=== PATIENT | female | born 1965 | race American Indian/Alaskan Native ===

== ENCOUNTER 2017-09-12 11:33 | Outpatient (CLI) | payer MEDICAID ==
--- NOTE | 2017-09-14 13:02 | PET Report ---
PET/CT:09/12/17 11:33:00 CLINICAL: Right lung cancer restaging. RADIOPHARMACEUTICAL: 14.905mCi F18-FDG. COMPARISON: 07/26/16 and 01/26/16 PET/CT TECHNIQUE- Following intravenous injection of F-18 FDG and an approximately 60 minute uptake period, CT and PET images from the mid skull to the upper thighs were acquired with the patient in the fasted state. No contrast was administered. The CT protocol used for this PET CT study is designed for attenuation correction and anatomic localization of PET abnormalities. This luster applicator CT is not desired to produce and cannot replace, basaw-ke-xgt-art diagnostic CT scans with specific imaging protocols for different body parts and indications. Plasma glucose at the time of this test: 96g/dl. The standardized uptake values (SUV) are normalized to patient body weight and indicate the highest activity concentration (SUV max) in a given disease site. FINDINGS: Brain--Physiologic FDG uptake in the visualized regions of the brain. Neck--Physiologic FDG uptake . Chest--Physiologic FDG uptake in mediastinal blood pool and myocardium. Lungs--Increased size and number of right lung masses and nodules. The largest is in the right upper lobe and measures 4.8 x 2.4 cm with SUV of 12.0. A right apical mass measures 1.9-1.7 cm with HCV 13.3. Several bilateral non-FDG pulmonary nodules. The largest are on the right the largest is in the right lower lobe measuring 1.2 x 1.1 cm. Pleura/pericardium--No abnormal uptake. Thoracic nodes--Numerous enlarged FDG avid right hilar and mediastinal lymph nodes. An FDG avid subcarinal lymph node with SUV 12.8. A right paratracheal lymph node with SUV 12.4. Hepatobiliary--No abnormal uptake. Liver background SUV mean, as a reference for comparing FDG studies, is 3.6 compared to 3.0 on the last exam. No liver mass. Spleen--No abnormal uptake. Pancreas--No abnormal uptake. Adrenal Glands--No abnormal uptake. Kidneys/Ureters/Bladder--No abnormal uptake. Abdominopelvic Nodes--No abnormal uptake. Bowel/Peritoneum/Mesentery--No abnormal uptake. Pelvic organs--No abnormal uptake. Bones/Soft Tissues--No abnormal uptake. No suspicious bone lesion. IMPRESSION-Progression of disease with increased size and number of FDG avid right lung nodules and new bilateral non-FDG avid pulmonary nodules. Increased size and number of FDG avid mediastinal vance metastases. No evidence of hepatic or skeletal metastasis.
== END 2017-09-12 11:34 | disposition home or self-care (01) ==
LOC: PET 11:33
PROVIDERS: ATTEND Internal Medicine Hematology & Oncology
DX: C34.81 Malignant neoplasm of overlapping sites of right bronchus and lung (principal); D64.9 Anemia, unspecified; I10 Essential (primary) hypertension; R59.9 Enlarged lymph nodes, unspecified; Z79.899 Other long term (current) drug therapy
CPT/HCPCS: 78815; 82962; A9552

== ENCOUNTER 2018-01-06 14:17 | Outpatient (CLI) | payer MEDICAID | END 2018-01-06 14:18 | disposition home or self-care (01) | LOC: LABHHL 14:17 | PROVIDERS: ATTEND Internal Medicine Hematology & Oncology | DX: C34.81 Malignant neoplasm of overlapping sites of right bronchus and lung (principal) | CPT/HCPCS: 36415; 81235; 88271; 88275; 88291 ==

== ENCOUNTER → 2018-05-22 | Outpatient (CLI) | payer MEDICAID ==
--- NOTE | 2018-05-23 11:04 | PET Report ---
PET/CT:05/22/18 09:09:00 CLINICAL: Right lung cancer restaging. RADIOPHARMACEUTICAL: 13.5mCi F18-FDG. COMPARISON: 09/12/17 PET/CT TECHNIQUE- Following intravenous injection of F-18 FDG and an approximately 60 minute uptake period, CT and PET images from the mid skull to the upper thighs were acquired with the patient in the fasted state. No contrast was administered. The CT protocol used for this PET CT study is designed for attenuation correction and anatomic localization of PET abnormalities. This fluid jet cutter operator CT is not desired to produce and cannot replace, njajf-as-gtw-art diagnostic CT scans with specific imaging protocols for different body parts and indications. Plasma glucose at the time of this test: 103g/dl. The standardized uptake values (SUV) are normalized to patient body weight and indicate the highest activity concentration (SUV max) in a given disease site. FINDINGS: Brain--Physiologic FDG uptake in the visualized regions of the brain. Neck--Physiologic FDG uptake in mucosal structures. No mass or lymphadenopathy. Chest--Physiologic FDG uptake in mediastinal blood pool and myocardium. Lungs--Decreased size and decreased FDG uptake in right upper lobe paramediastinal mass extending into the right hilum. The dominant mass has a slightly different shape and is difficult to compare measurements with the last exam. Dominant mass of the right upper lobe measures approximately 4.3 x 2.3 cm with SUV 7.2 compared to 4.8 x 2.4 cm with 10.7 on the last exam. A right medial apical extension of the mass is unchanged in size with SUV 9.7 compared to 13.3 on the last exam. A superior segment right lower lobe mass measures 1.5 x 1.4 cm with SUV 4.2 compared to 1.5 x 1.4 cm and SUV 5.5. Pleura/pericardium--New right upper lobe pleural-based nodules. The largest is at the right fifth rib and measures 1.4 x 0.7 cm with SUV 6.5. 2 adjacent smaller nodules demonstrate no FDG uptake. Thoracic nodes--FDG avid mediastinal lymph nodes are unchanged in size. However, all lymph nodes demonstrate decreased FDG uptake area to a dominant subcarinal lymph node with SUV 9.0 compared to 14.2 on the last exam. Hepatobiliary--No abnormal uptake. Liver background SUV mean, as a reference for comparing FDG studies, is 2.9 compared to 3.6 on the last exam. No liver mass. Spleen--No abnormal uptake. Pancreas--No abnormal uptake. Adrenal Glands--No abnormal uptake. Kidneys/Ureters/Bladder--No abnormal uptake. Abdominopelvic Nodes--No abnormal uptake. Bowel/Peritoneum/Mesentery--No abnormal uptake. Pelvic organs--No abnormal uptake. Bones/Soft Tissues--No abnormal uptake. IMPRESSION- Mixed response to treatment with an overall decrease in size of right upper lobe lung masses and decreased FDG uptake in lung masses and mediastinal lymph nodes. However, new right upper lobe subpleural nodules are suspicious for new disease. No evidence of hepatic, adrenal or skeletal metastasis.
== END | disposition home or self-care (01) ==
LOC: PET 09:09
DX: C34.81 Malignant neoplasm of overlapping sites of right bronchus and lung (principal); D64.9 Anemia, unspecified; I10 Essential (primary) hypertension; M19.90 Unspecified osteoarthritis, unspecified site; Z86.2 Personal history of diseases of the blood and blood-forming organs and certain disorders involving the immune mechanism; Z79.899 Other long term (current) drug therapy; Z87.891 Personal history of nicotine dependence
CPT/HCPCS: 78815; 82962; A9552